=== PATIENT | male | born 1965 | race Caucasian/White ===

== ENCOUNTER 2022-02-10 10:16 | Emergency (ER) | payer SELFPAY ==
[2022-02-10] MEDS ORDERED: Famotidine 20 MG/2 ML SDV IVPUSH ONE (12:52)
[2022-02-10] MEDS ORDERED: Alum Hydrox/Mag Hydrox/Simeth 30 ML, Lidocaine 2% 15 ML PO ONE ×2 (12:52)
== END 2022-02-10 14:53 | disposition home or self-care (01) ==
LOC: JD.ED 10:16
DX: R07.89 Other chest pain (principal); Z88.0 Allergy status to penicillin; F17.210 Nicotine dependence, cigarettes, uncomplicated
CPT/HCPCS: 36415; 71045; 80053; 83690; 83735; 84484; 85025; 85379; 93005; 96374; 99285; A9270; J3490